=== PATIENT | female | born 2000 | race Hispanic/Latino ===

== ENCOUNTER → 2024-03-02 12:14 | Outpatient (REF) | payer OTHER, SELFPAY ==
[2024-03-02 13:23] LABS: HCG, Serum Qualitative Screen Negative
[2024-03-02 13:30] LABS: ALT (SGPT) 14 U/L (0-35); AST (SGOT) 16 U/L (14-36); Albumin 4.7 g/dl (3.5-5.0); Alkaline Phosphatase 54 U/L (38-126); Blood Urea Nitrogen 14 mg/dl (7-17); Calcium 9.8 mg/dl (8.4-10.2); Carbon Dioxide 25 mmol/L (22-30); Chloride 107 mmol/L (98-107); Glucose 106 mg/dl (70-99); Potassium 4.4 mmol/L (3.5-5.1); Sodium 140 mmol/L (135-145); Total Bilirubin 0.5 mg/dl (0.2-1.3); Total Protein 6.8 g/dl (6.3-8.2); eGFR > 60.00
[2024-03-02 13:50] LABS: Free T4 0.97 ng/dl (0.78-2.19)
[2024-03-02 14:03] LABS: TSH 2.57 uIU/ml (0.47-4.68)
== END ==
LOC: CLINIC 12:14
PROVIDERS: ATTENDING PHYSICIAN Nurse Practitioner Adult Health
DX: N92.6 Irregular menstruation, unspecified (principal)
CPT/HCPCS: 36415; 80053; 84439; 84443; 84703

== ENCOUNTER 2024-05-31 00:56 | Emergency (ER) | payer SELFPAY ==
[2024-05-31 00:58] VITALS: BP 122/80
--- NOTE | 2024-05-31 01:40 | ED.GENMED ---
History of Present Illness
General
Chief Complaint: Problems
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
Exam Limitations: other (Language barrier)
Time Seen by Provider: 05/31/24 01:22
History of Present Illness
History of Present Illness:
This is a 24 year old female that comes in with c/o vaginal bleeding. States that she is about 6 weeks by 3 home test. State that yesterday at work she started with bleeding. States that it was only when she wiped and it went
away. Then it came back in the morning. States that she has lower abd discomfort and that the bleeding has increased tonight. States that she has a headache with some dizziness. Last menstrual period was April 12. Denies any fever, chills, chest
pain, SOB, nausea, vomiting, diarrhea, urinary burning.
Past History
Past History
ED Past Medical History: None; Negative Asthma, HTN, Hypercholesterolemia or NIDDM
ED Past Surgical History: None
Social History
Tobacco: Non-smoker
Alcohol: None
Personal: Single
Living: with family
Employment: Employed
Review of Systems
Review of Systems
All Other Systems: ROS reviewed and negative except as documented in HPI and ROS
Constitutional: Reports no symptoms; Denies fever or chills
EENT: Reports no symptoms
Respiratory: Reports no symptoms; Denies cough or trouble breathing
Cardiac: Reports no symptoms; Denies chest pain
ABD/GI: Reports abdominal pain (Lower abd discomfort); Denies nausea, vomiting or diarrhea
: Reports bleeding (Vaginal bleeding); Denies dysuria, frequency or urgency
Musculoskeletal: Reports no symptoms
Skin: Reports no symptoms
Neurological: Reports dizzy and headache
Psychiatric: Reports no symptoms
Phy Exam
General Physical Exam
General Presentation: well appearing and no apparent distress
General age: appears stated age
General Skin: warm and dry
General Habitus: normal
General Mental: alert
General Hydration: appears well hydrated
ENT Exam
ENT Exam: TM's normal, pharynx normal and neck supple
Eye Exam
Eye Exam: EOMI
Cardiovascular Exam
Cardiovascular Exam: regular rate/rhythm, no edema, no murmur and normal peripheral pulses
Pulmonary Exam
Pulmonary Exam: lungs clear, no respiratory distress, no rales, chest non tender, no crackles, no rhonchi, no wheezing and no cough
Gastrointestinal Exam
Gastrointestinal Exam: normal bowel sounds, soft, no organomegaly, no pulsatile mass, non distended and tender (Suprapubic tenderness with palpation)
Genitourinary Exam Female
Vaginal Bleeding: none (Patient is not wearing a pad at this time)
Musculoskeletal Exam
Musculoskeletal Exam: full ROM and no edema
Skin Exam
Skin Exam: normal color, warm/dry, no rash and no petechia
Psychiatric Exam
Psychiatric Exam: normal mood/affect
Course
Orders/Labs/Results
Orders:
Orders
05/31/24 01:39
IV Insert/Care/Rem.- Treatment PRN
0.9% Sodium Chloride 1000 ml [Nss] 1,000 ml IV BOLUS
US W Transvaginal Urgent
Reason For Exam: Lower abd pain, bleeding
05/31/24 01:50
Beta HCG Quantitative Urgent
Is this a screen?: No
Complete Blood Count/With Diff Urgent
Comprehensive Metabolic Panel Urgent
Urinalysis Reflex To Culture Urgent
Date Specimen was Collected: 05/31/24
Time Specimen was Collected: 01:43
Urine Microscopic Reflex Cult Urgent
05/31/24 02:45
Blood Group&Type Urgent
05/31/24 03:28
ABO2 Routine
BBK Wristband Number:
Associate notified that ABO2 has been ordered: CARLOS
Date: 05/31/24
Time: 02:57
Hydrostatic Tester ID: [id number]
Abnormal Lab Results
05/31/24
01:50
Hgb 11.9 L g/dL
(12.0-16.0)
Hct 35.7 L %
(37.0-47.0)
Absolute Monos (auto) 0.7 H 10^3/uL
(0.1-0.6)
Glucose 103 H mg/dl
(70-99)
Total Bilirubin < 0.1 L mg/dl
(0.2-1.3)
Ur Occult Blood Reflex 3+ A
(Negative)
Urine RBC 3-6 A /HPF
(0-2)
Urine Bacteria (Reflex) Few A
(Negative)
05/31/24 01:50
05/31/24 01:50
H/H slightly low. Glucose nonfasting. Total christina low. Urine negative for infection. HCG 2509.00, A positive
Vital Signs
Initial and Last Documented VS:
Initial Vital Signs
Temp Pulse Resp BP
97.8 F 74 18 122/80
05/31/24 00:58 05/31/24 00:58 05/31/24 00:58 05/31/24 00:58
Last Documented Vital Signs
Temp Pulse Resp BP Pulse Ox
97.8 F 74 20 109/67 100
05/31/24 00:58 05/31/24 00:58 05/31/24 02:00 05/31/24 02:00 05/31/24 02:45
Information
Weeks gestation: Weeks: (6 weeks , 1 day)
Location: Location: (Intrauterine)
MDM/Problems Addressed
Differential Diagnosis Includes:
vaginal bleeding in early . Miscarriage,
MDM/Problems Addressed:
This is a 24 year old female that comes in with c/o vaginal bleeding. States that she has done 3 home test and is about 6 weeks . States that she started with vaginal bleeding and it stopped and then started again.
Will check labs, Pelvis US, give IV fluids and sent urine
back into see patient. Explained that her US is normal that there is a live intrauterine with a heart rate of 141. patient states that she has an appointment with the [facility] on June 07. Patient to return with increased bleeding or
any other concerns.
Chronic conditions affecting care:
NA
Acute Exacerbation and/or Progression of Chronic Illness:
NA
*Radiology
Radiology exam reviewed: radiology read reviewed (US night hawk-There is an intrauterine gestational sac with yolk sac and pole. heart rate is 141 bpm. Gestational age of 6 weeks and 1 days by CRI. The endometrium is heterogeneous,
possible per-gestational hemorrhage but not confirmed. Simple appearing left ovarian cyst measuring 2.9cm.) and other (US cont- Normal flow to the left ovary. Normal right ovary with normal color flow. )
*Pulse Oximetry
Patient hypoxic: no
*EKG
Interpreted by ED Provider?: NA
Rate: EKG- N/A
*Clay Miller Interpretation
Rate: Clay Miller- N/A
*Critical Care Note
Total Time (30-74mins, 75-104mins- exclusive of procedures): Not Applicable
ED Attending Note
-
Portions of this chart may have been created with voice recognition software.� Occasional wrong word or��sound alike� substitutions may have occurred due to the inherent limitations of voice recognition software.
Discharge Plan
Departure
Patient Disposition: Home (Routine Discharge)
Date of Disposition: 05/31/24
Time of Disposition: 03:57
Patient with high blood pressure during this ER visit?: No
Condition: Good
Covid-19: Not Applicable
Discharge Problem:
Bleeding in early
Instructions: Bleeding in Early (DC)
Referrals:
NONE,* [Family Provider] -
Activity Restrictions/Additional Instructions:
As discussed, your blood work is normal and your urine is negative for infection. Your Ultrasound shows that you have a live intrauterine with a heart rate of 141. Please follow up with the [facility] for further evaluation. IF YOU HAVE
INCREASED BLEEDING, PAIN OR YOU HAVE ANY OTHER CONCERNS PLEASE RETURN TO THE EMERGENCY ROOM.
Interventions
Interventions:
*Risk Screen - Suicide Last Done: 05/31/24 00:58
*Neglect/Abuse Screening Last Done: 05/31/24 00:58
ED- Fall Risk Assessment Last Done: 05/31/24 02:12
*ED COVID-19 Vaccine History Last Done: 05/31/24 02:01
ED-Female Genitourinary Assessment Last Done: 05/31/24 02:12
Discharge Date and Time
Print Language: IVORIAN
[2024-05-31] MEDS: NSS 1000 IV (01:51)
[2024-05-31 01:54] VITALS: BP 99/54
[2024-05-31 01:59] LABS: % Basophils 0.4 % (0-2); % Eosinophils 1.3 % (0-6); % Immature Granulocytes 0.4 % (0-0.5); % Lymphocytes 30.1 % (20.5-51.1); % Monocytes 7.9 % (1.7-9.3); % Neutrophils 59.9 % (42.2-75.2); Absolute Eosinophils 0.1 10^3/uL (0-0.7); Absolute Lymphocytes 2.5 10^3/uL (1.2-3.4); Absolute Monocytes 0.7 10^3/uL (0.1-0.6); Hematocrit 35.7 % (37.0-47.0); Hemoglobin 11.9 g/dL (12.0-16.0); Mean Corp Hgb Conc. 33.3 g/dL (33.0-37.0); Mean Corpuscular Hgb 27.3 pg (27.0-31.0); Mean Corpuscular Volume 81.9 fL (81.0-99.0); Mean Platelet Volume 9.6 fL (7.4-10.4); Nucleated Red Blood Cells % 0 %; Platelet Count 242 10^3/uL (130-400); Red Blood Cell Count 4.36 10^6/uL (4.20-5.40); Red Cell Dist. Width 14.1 % (11.5-14.5); White Blood Cell Count 8.4 10^3/uL (4.8-10.8)
[2024-05-31 02:00] VITALS: BP 109/67
[2024-05-31 02:01] LABS: Urine Albumin Negative (Neg - Trace); Urine Bilirubin Negative (Negative); Urine Character Slightly Cloudy (Clear); Urine Color Yellow; Urine Glucose Negative (Negative); Urine Ketone Negative (Negative); Urine Leukocyte Negative (Negative); Urine Nitrite Negative (Negative); Urine Occult Blood 3+ (Negative); Urine Urobilinogen Negative (Neg - 1+)
[2024-05-31 02:08] LABS: Urine Amorphous Seen; Urine Bacteria Few (Negative)
[2024-05-31 02:14] LABS: ALT (SGPT) 16 U/L (0-35); AST (SGOT) 14 U/L (14-36); Albumin 4.2 g/dl (3.5-5.0); Alkaline Phosphatase 42 U/L (38-126); Blood Urea Nitrogen 17 mg/dl (7-17); Calcium 9.4 mg/dl (8.4-10.2); Carbon Dioxide 23 mmol/L (22-30); Chloride 107 mmol/L (98-107); Glucose 103 mg/dl (70-99); Potassium 3.9 mmol/L (3.5-5.1); Sodium 142 mmol/L (135-145); Total Bilirubin < 0.1 mg/dl (0.2-1.3); Total Protein 6.4 g/dl (6.3-8.2); eGFR > 60.00
[2024-05-31 04:07] VITALS: BP 112/68
== END 2024-05-31 04:09 | disposition home or self-care (01) ==
LOC: EMR 00:56
PROVIDERS: Clinical Nurse Specialist Family Health; EMERGENCY PHYSICIAN Student in an Organized Health Care Education/Training Program
DX: O20.9 Hemorrhage in early pregnancy, unspecified (principal); Z3A.01 Less than 8 weeks gestation of pregnancy
CPT/HCPCS: 99284; 96360; 76801; 76817; 80053; 81003; 81015; 84702; 85025; 86900; 86901